=== PATIENT | female | born 1985 | race Caucasian/White ===

== ENCOUNTER 2018-01-24 05:24 | Inpatient (IN) | payer MEDICAID, OTHER ==
[2018-01-24] MEDS ORDERED: CEFAZOLIN 2 GM/50 ML (PMX) 50 ML IV (06:13)
[2018-01-24] MEDS ORDERED: OXYTOCIN 30 UNITS/LR 500 ML IV ×3 (06:30→09:00)
[2018-01-24] MEDS ORDERED: MISOPROSTOL 200 MCG TAB PR ×2 (06:30→09:00)
[2018-01-24] MEDS ORDERED: METHYLERGONOVINE 0.2 MG INJ IM ×2 (06:30→09:00)
[2018-01-24] MEDS ORDERED: CARBOPROST 250 MCG INJ IM ×2 (06:30→09:00)
[2018-01-24 06:42] LABS: ADD MAN DIFF? NO
[2018-01-24 06:52] LABS: WHITE BLOOD COUNT 7.3 10^3/ul (4.8-10.8)
[2018-01-24 06:52] LABS: BASOPHILS % 0.4 % (0.0-2.0); EOSINOPHILS # 0.1 10^3/ul (0.0-0.5); EOSINOPHILS % 1.4 % (0.0-7.0); HEMOGLOBIN 10.8 g/dl (12.0-16.0); LYMPHOCYTES # 1.8 10^3/ul (0.8-2.9); LYMPHOCYTES % 24.1 % (15.0-51.0); MEAN CORPUSCULAR HEMOGLOBIN 26.9 pg (29.0-33.0); MEAN CORPUSCULAR HGB CONC 31.8 g/dl (32.0-37.0); MEAN CORPUSCULAR VOLUME 84.6 fl (82.0-101.0); MEAN PLATELET VOLUME 11.4 fl (7.4-10.4); MONOCYTE # 0.5 10^3/ul (0.3-0.9); MONOCYTES % 6.5 % (0.0-11.0); NEUTROPHIL # 4.9 10^3/ul (1.6-7.5); NEUTROPHILS % 67.2 % (39.0-77.0); PLATELET COUNT 180 10^3/UL (140-415); RED BLOOD COUNT 4.02 10^6/ul (4.20-5.40)
[2018-01-24] MEDS: LACTATED RINGER'S 1,000 ML IV ×3 (06:52→21:17)
[2018-01-24 07:09] LABS: INR 0.95; PROTIME 12.8 Sec (11.9-14.9)
[2018-01-24 07:10] LABS: PARTIAL THROMBOPLASTIN TIME 28.1 Sec (25.0-35.0)
[2018-01-24] MEDS ORDERED: EPHEDrine SULFATE 50 MG/5 ML SYG (07:21)
[2018-01-24] MEDS ORDERED: ONDANSETRON 4 MG INJ (07:21)
[2018-01-24] MEDS ORDERED: METOCLOPRAMIDE 10 MG INJ (07:21)
[2018-01-24] MEDS ORDERED: morphine SULFATE/PF (10 MG/10 ML) INJ (07:21)
[2018-01-24] MEDS ORDERED: OXYTOCIN 10 UNIT INJ ×2 (07:21→08:03)
[2018-01-24] MEDS ORDERED: BUPIVACAINE 0.75%/DEXT (SPINAL) 2 ML INJ (07:22)
[2018-01-24 07:46] LABS: HEPATITIS B SURFACE ANTIGEN NEGATIVE (NEGATIVE)
[2018-01-24] MEDS ORDERED: MIDAZOLAM 1 MG/ML 2 ML INJ (08:25)
[2018-01-24] MEDS: DEXTROSE 5%-LR 1,000 ML IV ×2 (08:58→16:58)
[2018-01-24] MEDS: OXYTOCIN 30 UNITS/LR 500 ML IV ×2 (08:58→14:58)
[2018-01-24] MEDS: SENNA/DOCUSATE NA (8.6MG/50MG) TAB PO ×2 (09:00→21:10)
[2018-01-24] MEDS ORDERED: METHYLERGONOVINE 0.2 MG TAB PO (09:00)
[2018-01-24] MEDS ORDERED: LANOLIN 7 GM TUBE TOP (09:00)
[2018-01-24] MEDS ORDERED: DIPHENHYDRAMINE 50 MG INJ IV (09:30)
[2018-01-24] MEDS: morphine SULFATE/PF (10 MG/10 ML) INJ SPINAL (09:30)
[2018-01-24] MEDS ORDERED: ONDANSETRON 4 MG INJ IV (09:30)
[2018-01-24] MEDS ORDERED: NALOXONE (0.4 MG/ML) INJ IV (09:30)
[2018-01-24] MEDS ORDERED: EPHEDrine SULFATE 50 MG/5 ML SYG IV (09:30)
[2018-01-24] MEDS ORDERED: morphine 2 MG INJ IV (09:30)
[2018-01-24] MEDS: morphine 2 MG INJ IV (10:13)
[2018-01-24] MEDS: KETOROLAC 30 MG INJ IV ×2 (10:32→23:20)
[2018-01-24 12:07] LABS: ADD MAN DIFF? NO
[2018-01-24 12:12] LABS: BASOPHILS % 0.2 % (0.0-2.0); EOSINOPHILS % 0.1 % (0.0-7.0); HEMATOCRIT 29.1 % (37.0-47.0); LYMPHOCYTES # 0.9 10^3/ul (0.8-2.9); LYMPHOCYTES % 8.7 % (15.0-51.0); MEAN CORPUSCULAR HEMOGLOBIN 26.4 pg (29.0-33.0); MEAN CORPUSCULAR HGB CONC 30.9 g/dl (32.0-37.0); MEAN CORPUSCULAR VOLUME 85.3 fl (82.0-101.0); MEAN PLATELET VOLUME 10.6 fl (7.4-10.4); MONOCYTE # 0.5 10^3/ul (0.3-0.9); NEUTROPHIL # 8.9 10^3/ul (1.6-7.5); NEUTROPHILS % 85.5 % (39.0-77.0); PLATELET COUNT 167 10^3/UL (140-415); RED BLOOD COUNT 3.41 10^6/ul (4.20-5.40); RED CELL DISTRIBUTION WIDTH 15.1 % (11.5-14.5)
[2018-01-24 12:12] LABS: WHITE BLOOD COUNT 10.4 10^3/ul (4.8-10.8)
[2018-01-24 15:24] LABS: RAPID PLASMA REAGIN NONREACTIVE (NR)
[2018-01-24] MEDS: LACTATED RINGER'S 500 ML IV (16:34)
[2018-01-24 16:40] LABS: ADD MAN DIFF? NO
[2018-01-24 16:42] LABS: WHITE BLOOD COUNT 9.5 10^3/ul (4.8-10.8)
[2018-01-24 16:42] LABS: BASOPHILS % 0.2 % (0.0-2.0); EOSINOPHILS % 0.3 % (0.0-7.0); HEMATOCRIT 27.2 % (37.0-47.0); HEMOGLOBIN 8.5 g/dl (12.0-16.0); LYMPHOCYTES # 1.3 10^3/ul (0.8-2.9); LYMPHOCYTES % 14.1 % (15.0-51.0); MEAN CORPUSCULAR HGB CONC 31.3 g/dl (32.0-37.0); MEAN CORPUSCULAR VOLUME 86.3 fl (82.0-101.0); MEAN PLATELET VOLUME 10.8 fl (7.4-10.4); MONOCYTE # 0.5 10^3/ul (0.3-0.9); MONOCYTES % 4.9 % (0.0-11.0); NEUTROPHIL # 7.6 10^3/ul (1.6-7.5); NEUTROPHILS % 80.2 % (39.0-77.0); PLATELET COUNT 168 10^3/UL (140-415); RED BLOOD COUNT 3.15 10^6/ul (4.20-5.40); RED CELL DISTRIBUTION WIDTH 15.1 % (11.5-14.5)
[2018-01-25] MEDS: DEXTROSE 5%-LR 1,000 ML IV ×3 (00:58→16:58)
[2018-01-25] MEDS: LACTATED RINGER'S 1,000 ML IV ×2 (05:23→14:13)
[2018-01-25] MEDS: KETOROLAC 30 MG INJ IV (06:53)
[2018-01-25 09:31] LABS: ADD MAN DIFF? NO
[2018-01-25 09:35] LABS: BASOPHILS % 0.1 % (0.0-2.0); EOSINOPHILS # 0.1 10^3/ul (0.0-0.5); EOSINOPHILS % 1.2 % (0.0-7.0); HEMATOCRIT 23.7 % (37.0-47.0); HEMOGLOBIN 7.5 g/dl (12.0-16.0); LYMPHOCYTES # 1.1 10^3/ul (0.8-2.9); LYMPHOCYTES % 13.5 % (15.0-51.0); MEAN CORPUSCULAR HEMOGLOBIN 27.3 pg (29.0-33.0); MEAN CORPUSCULAR HGB CONC 31.6 g/dl (32.0-37.0); MEAN CORPUSCULAR VOLUME 86.2 fl (82.0-101.0); MEAN PLATELET VOLUME 10.6 fl (7.4-10.4); MONOCYTE # 0.3 10^3/ul (0.3-0.9); MONOCYTES % 4.1 % (0.0-11.0); NEUTROPHIL # 6.6 10^3/ul (1.6-7.5); NEUTROPHILS % 80.6 % (39.0-77.0); PLATELET COUNT 165 10^3/UL (140-415); RED BLOOD COUNT 2.75 10^6/ul (4.20-5.40); RED CELL DISTRIBUTION WIDTH 15.3 % (11.5-14.5)
[2018-01-25 09:35] LABS: WHITE BLOOD COUNT 8.2 10^3/ul (4.8-10.8)
[2018-01-25] MEDS: SENNA/DOCUSATE NA (8.6MG/50MG) TAB PO ×2 (09:46→22:01)
[2018-01-25] MEDS: OXYCODONE/ACETAMINOPHEN (5/325) TAB PO ×3 (09:58→18:15)
[2018-01-25] MEDS: IBUPROFEN 800 MG TAB PO ×3 (13:31→22:00)
[2018-01-25] MEDS ORDERED: OXYCODONE/ACETAMINOPHEN (5/325) TAB PO (19:00)
[2018-01-26] MEDS: IBUPROFEN 800 MG TAB PO ×3 (05:48→21:45)
[2018-01-26] MEDS: OXYCODONE/ACETAMINOPHEN (5/325) TAB PO ×3 (09:00→17:37)
[2018-01-26] MEDS: DOCUSATE SODIUM 100 MG CAP PO ×2 (09:20→21:07)
[2018-01-26] MEDS: SENNA/DOCUSATE NA (8.6MG/50MG) TAB PO ×2 (09:20→21:07)
[2018-01-26] MEDS: POLYSACCHARIDE IRON COMPLEX CAP PO ×2 (09:20→21:07)
[2018-01-26 13:22] LABS: ADD MAN DIFF? NO
[2018-01-26 13:24] LABS: WHITE BLOOD COUNT 9.3 10^3/ul (4.8-10.8)
[2018-01-26 13:24] LABS: BASOPHILS % 0.1 % (0.0-2.0); EOSINOPHILS # 0.1 10^3/ul (0.0-0.5); EOSINOPHILS % 1.5 % (0.0-7.0); HEMOGLOBIN 7.2 g/dl (12.0-16.0); LYMPHOCYTES % 10.9 % (15.0-51.0); MEAN CORPUSCULAR HGB CONC 31.3 g/dl (32.0-37.0); MEAN CORPUSCULAR VOLUME 86.1 fl (82.0-101.0); MEAN PLATELET VOLUME 10.4 fl (7.4-10.4); MONOCYTE # 0.4 10^3/ul (0.3-0.9); MONOCYTES % 4.6 % (0.0-11.0); NEUTROPHIL # 7.7 10^3/ul (1.6-7.5); NEUTROPHILS % 82.5 % (39.0-77.0); PLATELET COUNT 197 10^3/UL (140-415); RED BLOOD COUNT 2.67 10^6/ul (4.20-5.40); RED CELL DISTRIBUTION WIDTH 15.9 % (11.5-14.5)
[2018-01-27] MEDS: OXYCODONE/ACETAMINOPHEN (5/325) TAB PO ×2 (01:08→09:09)
[2018-01-27] MEDS: IBUPROFEN 800 MG TAB PO ×2 (05:33→14:05)
[2018-01-27] MEDS: DIPHTH/TET/ACEL PERTUSS (ADULT) 0.5 ML VIAL IM* (09:00)
[2018-01-27] MEDS: SENNA/DOCUSATE NA (8.6MG/50MG) TAB PO (09:00)
[2018-01-27] MEDS: MEASLES,MUMPS,RUBELLA VACCINE INJ SC* (09:00)
[2018-01-27] MEDS: POLYSACCHARIDE IRON COMPLEX CAP PO (09:07)
[2018-01-27] MEDS: DOCUSATE SODIUM 100 MG CAP PO (09:07)
[2018-01-27 13:46] LABS: ADD MAN DIFF? NO
[2018-01-27 13:48] LABS: BASOPHILS % 0.1 % (0.0-2.0); EOSINOPHILS # 0.2 10^3/ul (0.0-0.5); EOSINOPHILS % 1.5 % (0.0-7.0); HEMATOCRIT 24.4 % (37.0-47.0); HEMOGLOBIN 7.5 g/dl (12.0-16.0); LYMPHOCYTES % 10.2 % (15.0-51.0); MEAN CORPUSCULAR HEMOGLOBIN 27.3 pg (29.0-33.0); MEAN CORPUSCULAR HGB CONC 30.7 g/dl (32.0-37.0); MEAN CORPUSCULAR VOLUME 88.7 fl (82.0-101.0); MEAN PLATELET VOLUME 9.7 fl (7.4-10.4); MONOCYTE # 0.4 10^3/ul (0.3-0.9); NEUTROPHIL # 8.4 10^3/ul (1.6-7.5); NEUTROPHILS % 83.7 % (39.0-77.0); PLATELET COUNT 215 10^3/UL (140-415); RED BLOOD COUNT 2.75 10^6/ul (4.20-5.40); RED CELL DISTRIBUTION WIDTH 15.9 % (11.5-14.5)
== END 2018-01-27 17:15 | disposition home or self-care (01) | DRG 765 ==
LOC: L-D 05:24 → PP1 13:41
PROVIDERS: Obstetrics & Gynecology
PROC: 10D00Z1 Extraction of Products of Conception, Low, Open Approach (ICD-10-PCS; principal; 2018-01-24 07:30)
DX: O34.219 Maternal care for unspecified type scar from previous cesarean delivery (principal); D62 Acute posthemorrhagic anemia; O99.02 Anemia complicating childbirth; N83.7 Hematoma of broad ligament; Z37.0 Single live birth; Z3A.39 39 weeks gestation of pregnancy
CPT/HCPCS: 85025; 85610; 85730; 86592; 86850; 86900; 86901; 87340; 94760; 99464

== ENCOUNTER 2019-02-07 18:47 | Emergency (ER) | payer MEDICAID ==
[2019-02-07] MEDS: ONDANSETRON (ODT) 4 MG TAB ODT (20:03)
[2019-02-07] MEDS: ACETAMINOPHEN 325 MG TAB PO (20:03)
[2019-02-07] MEDS: IBUPROFEN 600 MG TAB PO (20:03)
[2019-02-07] MEDS: morphine LIQ (10 MG/5 ML) CUP PO (21:29)
== END 2019-02-07 22:02 | disposition home or self-care (01) ==
LOC: FTE 18:47
DX: S06.0X0A Concussion without loss of consciousness, initial encounter (principal); S00.83XA Contusion of other part of head, initial encounter; S80.211A Abrasion, right knee, initial encounter; V49.59XA Passenger injured in collision with other motor vehicles in traffic accident, initial encounter
CPT/HCPCS: 36415; 70450; 70486; 72131; 84703; 99284-25